=== PATIENT | female | born 1950 | race Two or more races ===

== ENCOUNTER 2023-06-22 14:30 | Inpatient (IN) | payer MEDICARE ==
[~2023-06-22] VITALS: Ht 157.5 cm; Wt 52.6 kg
[2023-06-22 16:19] LABS: BASOPHILS % 0.5 % (0.0-2.0); EOSINOPHILS % 0.6 % (0.0-5.0); HEMATOCRIT. 46.7 % (36.0-48.0); HEMOGLOBIN. 15.6 g/dL (12.0-16.0); LYMPHOCYTES % 10.3 % (20.0-50.0); MEAN CORPUSCULAR HEMOGLOBIN 30.2 pg (28.0-32.0); MEAN CORPUSCULAR HGB CONC 33.5 g/dL (31.0-37.0); MEAN CORPUSCULAR VOLUME 90.2 fL (81.0-99.0); MEAN PLATELET VOLUME 7.9 fl (7.4-10.4); MONOCYTES % 5.3 % (2.0-8.0); NEUTROPHILS % 83.3 % (40.0-76.0); PLATELET 219 x1000/uL (130-400); RED BLOOD CELL COUNT 5.17 mill/uL (4.2-5.4); RED CELL DISTRIBUTION WIDTH 12.9 % (11.6-14.6); WHITE BLOOD COUNT 7.2 x1000/uL (4.5-11.0)
[2023-06-22 16:23] LABS: CHLORIDE 119 mEq/L (98-107); INDEX HEMOLYSI 4 (1-3); INDEX ICTERIC 1 (1-4); INDEX LIPEMIC 1 (1-3); SODIUM 143 mEq/L (136-145)
[2023-06-22 16:27] LABS: PROTHROMBIN TIME 10.4 sec (9.6-11.0)
[2023-06-22 16:32] LABS: POTASSIUM 2.9 mEq/L (3.5-5.1)
[2023-06-22 16:35] LABS: ACETAMINOPHEN 2 ug/mL (10-30); ALANINE AMINOTRANSFERASE 17 IU/L (13-61); ALBUMIN 2.8 g/dL (3.4-5.0); ASPARTATE AMINOTRANSFERASE 20 IU/L (15-37); BILIRUBIN TOTAL 0.7 mg/dL (0.1-1.0); CALCIUM 6.8 mg/dL (8.5-10.1); CARBON DIOXIDE 15 mEq/L (21-32); CREATININE 0.5 mg/dL (0.6-1.3); ETHANOL BLOOD < 10 mg/dL (-10); GLUCOSE 99 mg/dL (70-105); NT PRO B-TYPE NATRIURETIC PEP 55 pg/mL (5-125); PROTEIN TOTAL 5.4 g/dL (6.0-8.3); UREA NITROGEN BLOOD 19 mg/dL (7-21)
[2023-06-22 16:41] LABS: CLARITY URINE CLOUDY (CLEAR); COLOR URINE YELLOW (YELLOW); GLUCOSE URINE NEGATIVE (NEGATIVE); KETONES URINE 2+ (NEGATIVE); LACTIC ACID 2.7 mmol/L (0.4-2.0); LEUKOCYTE ESTERASE URINE NEGATIVE (NEGATIVE); NITRITE URINE NEGATIVE (NEGATIVE); OCCULT BLOOD URINE NEGATIVE (NEGATIVE); PROTEIN URINE NEGATIVE (NEGATIVE); SPECIFIC GRAVITY URINE 1.014 (1.005-1.030); UROBILINOGEN URINE 0.2 E.U./dL (0.2-1.0)
[2023-06-22 16:43] LABS: YEAST URINE NONE SEEN
[2023-06-22] MEDS: MAGNESIUM OXIDE 400MG TABLET PO SCH (17:00)
[2023-06-22] MEDS ORDERED: POTASSIUM CHLORIDE 20MEQ TABLET SR PO ONE (17:00)
[2023-06-22] MEDS ORDERED: CALCIUM GLUCONATE 100MG/ML 10ML VIAL IV ONE (17:00)
[2023-06-22] MEDS ORDERED: SODIUM CHLORIDE 0.9% 1,000 ML IV ONE (17:00)
[2023-06-22 17:03] LABS: *AMPHETAMINES SCREEN URINE NEGATIVE (NEGATIVE); *BARBITURATES SCREEN URINE NEGATIVE (NEGATIVE); *BENZODIAZEPINES SCREEN URINE NEGATIVE (NEGATIVE); *COCAINE SCREEN URINE NEGATIVE (NEGATIVE); CANNABINOID URINE SCREEN NEGATIVE (NEGATIVE); ECSTASY MDMA SCREEN URINE NEGATIVE (NEGATIVE); METHADONE URINE SCREEN NEGATIVE (NEGATIVE); OPIATES URINE SCREEN NEGATIVE (NEGATIVE); PHENCYCLIDINE URINE SCREEN NEGATIVE (NEGATIVE)
[2023-06-22 17:06] LABS: AMORPHOUS SEDIMENT URINE 1+ /lpf; BACTERIA URINE 2+; RBC URINE 0-2 /hpf (0-2); SQUAMOUS EPITHELIAL CELL URINE 1+ /lpf (RARE/1+); TROPONIN I HIGH SENSITIVITY 85 ng/L (<54); WBC URINE 0-2 /hpf (0-2)
[2023-06-22] MEDS ORDERED: POTASSIUM CHLORIDE 20MEQ TABLET SR PO NR (17:15)
[2023-06-22] MEDS: ASPIRIN 325MG EC TABLET PO ONE (17:30)
[2023-06-22] MEDS ORDERED: CALCIUM GLUCONATE 1GM PREMIX 50 ML IV SCH (18:00)
[2023-06-22] MEDS ORDERED: ACETAMINOPHEN 325MG TABLET PO PRN ×2 (18:45)
[2023-06-22] MEDS ORDERED: GUAIFENESIN 200MG/10ML SUGAR FREE UDC PO PRN (18:45)
[2023-06-22] MEDS ORDERED: ONDANSETRON HCL 4MG/2ML INJ IV PRN (18:45)
[2023-06-22] MEDS ORDERED: CLONIDINE 0.1MG TABLET PO PRN (18:45)
[2023-06-22] MEDS ORDERED: IPRATROPIUM/ALBUTEROL 0.5-3(2.5)MG/3ML NEB HHN PRN (18:45)
[2023-06-22] MEDS ORDERED: DOCUSATE SODIUM 100MG CAPSULE PO PRN (18:45)
[2023-06-22] MEDS ORDERED: LORAZEPAM 0.5MG TABLET PO PRN (18:45)
[2023-06-22] MEDS ORDERED: MAGNESIUM/ALUMINUM HYDROXIDE/SIMETHICONE 30ML UDC PO PRN (18:45)
[2023-06-22] MEDS: ENOXAPARIN 40MG/0.4ML SYR SUBCUT SCH (19:00)
[2023-06-22] MEDS ORDERED: HYDRALAZINE 20MG/ML VIAL IV NR (19:30)
[2023-06-22 20:25] LABS: INDEX HEMOLYSI 1 (1-3); INDEX ICTERIC 1 (1-4); INDEX LIPEMIC 1 (1-3)
[2023-06-22 20:34] LABS: BILIRUBIN TOTAL 0.9 mg/dL (0.1-1.0); PROTEIN TOTAL 6.9 g/dL (6.0-8.3)
[2023-06-22 20:36] LABS: ALANINE AMINOTRANSFERASE 26 IU/L (13-61); ALBUMIN 3.6 g/dL (3.4-5.0); ASPARTATE AMINOTRANSFERASE 19 IU/L (15-37); CARBON DIOXIDE 22 mEq/L (21-32); CHLORIDE 110 mEq/L (98-107); CREATININE 0.7 mg/dL (0.6-1.3); GLUCOSE 121 mg/dL (70-105); POTASSIUM 4.1 mEq/L (3.5-5.1); SODIUM 139 mEq/L (136-145); UREA NITROGEN BLOOD 18 mg/dL (7-21)
[2023-06-22 20:51] LABS: CALCIUM 13.9 mg/dL (8.5-10.1); TROPONIN I HIGH SENSITIVITY 124 ng/L (<54)
[2023-06-22 20:52] VITALS: BP 130/82; PULSE 89; RESP 16; TEMP 97.1
[2023-06-22 21:00] VITALS: BP 130/82; PULSE 89; RESP 16; TEMP 97.1
[2023-06-22] MEDS: AMLODIPINE 5MG TABLET PO SCH (21:15)
[2023-06-22] MEDS ORDERED: SODIUM CHLORIDE 0.45% 1,000 ML IV ONE (21:30)
[2023-06-23] VITALS: BP 128/81; PULSE 84; RESP 16; TEMP 96.9
[2023-06-23 00:47] LABS: INDEX HEMOLYSI 1 (1-3)
[2023-06-23 00:55] LABS: CREATINE KINASE 72 IU/L (26-192); CREATINE KINASE MB FRACTION < 1.0 ng/mL (0.5-3.6)
[2023-06-23 00:59] LABS: TROPONIN I HIGH SENSITIVITY 145 ng/L (<54)
[2023-06-23 04:00] VITALS: BP 121/78; PULSE 78; RESP 17; TEMP 97.1
[2023-06-23 07:19] LABS: BASOPHILS % 0.5 % (0.0-2.0); EOSINOPHILS % 0.9 % (0.0-5.0); LYMPHOCYTES % 17.8 % (20.0-50.0); MEAN CORPUSCULAR HEMOGLOBIN 30.7 pg (28.0-32.0); MEAN CORPUSCULAR VOLUME 90.3 fL (81.0-99.0); MEAN PLATELET VOLUME 8.1 fl (7.4-10.4); MONOCYTES % 9.3 % (2.0-8.0); NEUTROPHILS % 71.5 % (40.0-76.0); PLATELET 208 x1000/uL (130-400); RED BLOOD CELL COUNT 4.88 mill/uL (4.2-5.4); RED CELL DISTRIBUTION WIDTH 13.3 % (11.6-14.6); WHITE BLOOD COUNT 6.5 x1000/uL (4.5-11.0)
[2023-06-23 08:00] VITALS: BP 121/80; PULSE 69; RESP 20; TEMP 97.6
[2023-06-23 08:03] LABS: HEPATITIS B SURFACE ANTIGEN NEGATIVE
[2023-06-23 08:24] LABS: CHLORIDE 109 mEq/L (98-107); INDEX HEMOLYSI 1 (1-3); INDEX ICTERIC 1 (1-4); INDEX LIPEMIC 1 (1-3); POTASSIUM 3.9 mEq/L (3.5-5.1); SODIUM 136 mEq/L (136-145)
[2023-06-23 08:31] LABS: HEPATITIS C VIR.AB 0.11 INDEXVAL (0.00-0.80)
[2023-06-23 08:38] LABS: ALANINE AMINOTRANSFERASE 24 IU/L (13-61); ALBUMIN 3.6 g/dL (3.4-5.0); ASPARTATE AMINOTRANSFERASE 19 IU/L (15-37); BILIRUBIN TOTAL 1.1 mg/dL (0.1-1.0); CARBON DIOXIDE 19 mEq/L (21-32); CHOLESTEROL 208 mg/dL (<200); CREATINE KINASE 65 IU/L (26-192); CREATINE KINASE MB FRACTION < 1.0 ng/mL (0.5-3.6); CREATININE 0.7 mg/dL (0.6-1.3); GLUCOSE 101 mg/dL (70-105); HDL CHOLESTEROL 66 mg/dL (40-59); LDL CHOLESTEROL 121 mg/dL (5-100); PHOSPHORUS 2.3 mg/dL (2.5-4.9); T4 FREE 1.07 ng/dL (0.76-1.46); THYROID STIMULATING HORMONE 0.89 uIU/mL (0.36-3.74); TRIGLYCERIDE 195 mg/dL (0-150); UREA NITROGEN BLOOD 16 mg/dL (7-21)
[2023-06-23 08:49] LABS: TROPONIN I HIGH SENSITIVITY 149 ng/L (<54)
[2023-06-23] MEDS: MAGNESIUM OXIDE 400MG TABLET PO SCH (09:50)
[2023-06-23] MEDS: AMLODIPINE 5MG TABLET PO SCH (09:51)
[2023-06-23 12:00] VITALS: BP 127/86; PULSE 78; RESP 20; TEMP 97.6
[2023-06-23] MEDS ORDERED: ASPIRIN 325MG EC TABLET PO NR (15:15)
[2023-06-23 16:00] VITALS: BP 123/77; PULSE 72; RESP 20; TEMP 97.6
[2023-06-23] MEDS: ENOXAPARIN 40MG/0.4ML SYR SUBCUT SCH (18:13)
[2023-06-23] MEDS: PANTOPRAZOLE 40MG DR TABLET PO SCH (18:33)
[2023-06-23] MEDS ORDERED: SODIUM PHOS,M-BASIC-D-BASIC 15 MM in DEXT 5% WATER 245 ML IV NR (18:45)
[2023-06-23] MEDS: ASPIRIN 81MG TABLET PO SCH (19:07)
[2023-06-23 20:00] VITALS: BP 127/81; PULSE 73; RESP 17; TEMP 97.7
[2023-06-23] MEDS: ATORVASTATIN CALCIUM 20MG TABLET PO SCH (21:04)
[2023-06-23 22:02] LABS: INDEX HEMOLYSI 1 (1-3)
[2023-06-23 22:09] LABS: CREATINE KINASE 57 IU/L (26-192); CREATINE KINASE MB FRACTION < 1.0 ng/mL (0.5-3.6)
[2023-06-23 22:22] LABS: TROPONIN I HIGH SENSITIVITY 132 ng/L (<54)
[2023-06-24] VITALS: BP 113/80; PULSE 61; RESP 17; TEMP 97.7
[2023-06-24 02:02] LABS: INDEX HEMOLYSI 1 (1-3)
[2023-06-24 02:10] LABS: CREATINE KINASE 54 IU/L (26-192); CREATINE KINASE MB FRACTION < 1.0 ng/mL (0.5-3.6)
[2023-06-24 02:46] LABS: TROPONIN I HIGH SENSITIVITY 121 ng/L (<54)
[2023-06-24 04:00] VITALS: BP 106/75; PULSE 60; RESP 16; TEMP 97.9
[2023-06-24] MEDS: PANTOPRAZOLE 40MG DR TABLET PO SCH (06:35)
[2023-06-24 07:35] LABS: CHLORIDE 115 mEq/L (98-107); INDEX HEMOLYSI 1 (1-3); INDEX ICTERIC 1 (1-4); INDEX LIPEMIC 1 (1-3); SODIUM 141 mEq/L (136-145)
[2023-06-24 07:43] LABS: BASOPHILS % 1.2 % (0.0-2.0); EOSINOPHILS % 3.7 % (0.0-5.0); HEMOGLOBIN. 14.4 g/dL (12.0-16.0); LYMPHOCYTES % 28.7 % (20.0-50.0); MEAN CORPUSCULAR HGB CONC 34.4 g/dL (31.0-37.0); MEAN CORPUSCULAR VOLUME 90.3 fL (81.0-99.0); MEAN PLATELET VOLUME 8.1 fl (7.4-10.4); MONOCYTES % 11.9 % (2.0-8.0); NEUTROPHILS % 54.5 % (40.0-76.0); PLATELET 198 x1000/uL (130-400); RED BLOOD CELL COUNT 4.65 mill/uL (4.2-5.4); RED CELL DISTRIBUTION WIDTH 13.1 % (11.6-14.6); WHITE BLOOD COUNT 4.2 x1000/uL (4.5-11.0)
[2023-06-24 07:50] LABS: ALANINE AMINOTRANSFERASE 23 IU/L (13-61); ALBUMIN 3.3 g/dL (3.4-5.0); ASPARTATE AMINOTRANSFERASE 13 IU/L (15-37); BILIRUBIN TOTAL 0.8 mg/dL (0.1-1.0); CALCIUM 8.9 mg/dL (8.5-10.1); CARBON DIOXIDE 21 mEq/L (21-32); CREATINE KINASE 48 IU/L (26-192); CREATINE KINASE MB FRACTION < 1.0 ng/mL (0.5-3.6); CREATININE 0.7 mg/dL (0.6-1.3); GLUCOSE 102 mg/dL (70-105); PHOSPHORUS 2.9 mg/dL (2.5-4.9); PROTEIN TOTAL 6.5 g/dL (6.0-8.3); UREA NITROGEN BLOOD 17 mg/dL (7-21)
[2023-06-24 08:00] VITALS: BP 122/79; PULSE 55; RESP 20; TEMP 97.7
[2023-06-24 08:24] LABS: TROPONIN I HIGH SENSITIVITY 115 ng/L (<54)
[2023-06-24] MEDS: ASPIRIN 81MG TABLET PO SCH (08:56)
[2023-06-24] MEDS ORDERED: ASPIRIN 81MG TABLET PO SCH (09:00)
[2023-06-24] MEDS ORDERED: CARVEDILOL 3.125 MG TABLET PO SCH (09:00)
[2023-06-24 12:00] VITALS: BP 121/81; PULSE 70; RESP 20; TEMP 97.8
[2023-06-24 13:24] LABS: INDEX HEMOLYSI 1 (1-3)
[2023-06-24 13:32] LABS: CREATINE KINASE 49 IU/L (26-192); CREATINE KINASE MB FRACTION < 1.0 ng/mL (0.5-3.6)
[2023-06-24 15:25] LABS: TROPONIN I HIGH SENSITIVITY 112 ng/L (<54)
[2023-06-24 16:00] VITALS: BP 117/82; PULSE 65; RESP 20; TEMP 97.9
[2023-06-24] MEDS: ENOXAPARIN 40MG/0.4ML SYR SUBCUT SCH (18:50)
[2023-06-24 20:00] VITALS: BP 124/87; PULSE 70; RESP 18; TEMP 97.1
[2023-06-24] MEDS: ATORVASTATIN CALCIUM 20MG TABLET PO SCH (22:29)
[2023-06-25] VITALS: BP 124/75; PULSE 68; RESP 19; TEMP 96.9
[2023-06-25 04:00] VITALS: BP 117/74; PULSE 69; RESP 18; TEMP 97.3
[2023-06-25 06:28] LABS: BASOPHILS % 1.1 % (0.0-2.0); EOSINOPHILS % 3.5 % (0.0-5.0); HEMATOCRIT. 41.6 % (36.0-48.0); LYMPHOCYTES % 25.2 % (20.0-50.0); MEAN CORPUSCULAR HEMOGLOBIN 30.6 pg (28.0-32.0); MEAN CORPUSCULAR HGB CONC 33.8 g/dL (31.0-37.0); MEAN CORPUSCULAR VOLUME 90.5 fL (81.0-99.0); MEAN PLATELET VOLUME 7.8 fl (7.4-10.4); MONOCYTES % 9.5 % (2.0-8.0); NEUTROPHILS % 60.7 % (40.0-76.0); PLATELET 196 x1000/uL (130-400); RED CELL DISTRIBUTION WIDTH 12.8 % (11.6-14.6); WHITE BLOOD COUNT 5.2 x1000/uL (4.5-11.0)
[2023-06-25] MEDS: PANTOPRAZOLE 40MG DR TABLET PO SCH (06:45)
[2023-06-25 06:50] LABS: CHLORIDE 108 mEq/L (98-107); INDEX HEMOLYSI 1 (1-3); INDEX ICTERIC 1 (1-4); INDEX LIPEMIC 1 (1-3); SODIUM 138 mEq/L (136-145)
[2023-06-25 06:59] LABS: CARBON DIOXIDE 22 mEq/L (21-32); CREATININE 0.9 mg/dL (0.6-1.3); GLUCOSE 107 mg/dL (70-105); UREA NITROGEN BLOOD 21 mg/dL (7-21)
[2023-06-25 08:00] VITALS: BP 119/71; PULSE 55; RESP 20; TEMP 97.9
[2023-06-25] MEDS: ASPIRIN 81MG TABLET PO SCH (08:55)
[2023-06-25] MEDS ORDERED: IOHEXOL-350 100 ML BOTTLE ONE (10:10)
[2023-06-25] MEDS ORDERED: NITROGLYCERIN SPRAY/4.9GM CAN TL PRN (11:00)
[2023-06-25 12:00] VITALS: BP 117/80; PULSE 66; RESP 20; TEMP 97.7
[2023-06-25] MEDS ORDERED: ATOR20TA PO (12:52)
[2023-06-25 14:35] VITALS: BP 117/80; PULSE 66; TEMP 97.7; O2SAT 100
== END 2023-06-25 15:34 | disposition home or self-care (01) | DRG 91 ==
LOC: ER 14:30 → 8WST 21:28
PROVIDERS: ADMIT Internal Medicine; ATTEND Internal Medicine
DX: G92.8 Other toxic encephalopathy (principal); E43 Unspecified severe protein-calorie malnutrition; E87.20 Acidosis, unspecified; E83.51 Hypocalcemia; E87.6 Hypokalemia; E83.52 Hypercalcemia; E78.5 Hyperlipidemia, unspecified; F41.9 Anxiety disorder, unspecified; I10 Essential (primary) hypertension; Z20.822 Contact with and (suspected) exposure to COVID-19; Z68.21 Body mass index [BMI] 21.0-21.9, adult; I25.10 Atherosclerotic heart disease of native coronary artery without angina pectoris; Z79.82 Long term (current) use of aspirin; Z79.899 Other long term (current) drug therapy; Z82.49 Family history of ischemic heart disease and other diseases of the circulatory system
CPT/HCPCS: 36415; 71045; 75571; 80048; 80053; 80061; 80305; 80307; 80320; 80329; 81003; 82330; 82550; 82553; 82962; 83605; 83735; 83880; 83970; 84100; 84145; 84439; 84443; 84484; 85025; 85379; 86803; 87340; 87426; 93005; 93306; 93880; 93970; 99285; C9803; J0360; J0610; J1650; J3490; J7030; J7060; Q9967; G0480